=== PATIENT | female | born 1950 | race Caucasian/White ===

== ENCOUNTER 2017-09-13 11:24 | Outpatient (CLI) | payer MEDICARE, BC ==
--- NOTE | 2017-09-24 18:01 | Mammography Report ---
BILATERAL DIGITAL MAMMOGRAPHY: 09/13/2017 COMPARISON: 09/07/2016, 08/16/2015, 08/06/2014, and 05/05/2013. TECHNIQUE: Bilateral digital CC and MLO projections. FINDINGS: The breast tissue is heterogeneously dense. There is no dominant mass, suspicious microcalcifications or skin thickening. On the left, no architectural distortion is seen. On the right, there is asymmetric density in the upper outer breast and a possible developing density in the posterior 6 o'clock position for which spot compression and true lateral views are suggested. Depending on these, ultrasound may be needed. IMPRESSION: 1. NEGATIVE LEFT BREAST. BIRADS CATEGORY: 1, NEGATIVE. 2. NEEDS ADDITIONAL EVALUATION RIGHT BREAST. BIRADS CATEGORY: 0, INCOMPLETE. STANDARD QUALIFYING STATEMENTS 1. This examination was reviewed with the aid of Computed-Aided Detection (CAD) . 2. A negative or benign imaging report should not delay biopsy if clinically suspicious findings are present. Consider surgical consultation if warranted. More than 5 % of cancers are not identified by imaging. 3. Dense breasts may obscure an underlying neoplasm. TD: 09/24/2017 16:07 ZANDRA
== END 2017-09-13 11:25 | disposition home or self-care (01) ==
LOC: DI 11:24
PROVIDERS: ATTEND Family Medicine
DX: Z12.31 Encounter for screening mammogram for malignant neoplasm of breast (principal); R92.2 Inconclusive mammogram
CPT/HCPCS: 77067

== ENCOUNTER 2017-10-29 14:08 | Outpatient (CLI) | payer MEDICARE, BC ==
--- NOTE | 2017-10-29 15:16 | Mammography Report ---
Procedure Date: 10/29/2017 Accession Number: [id number] / [id number] Procedure: BRENNA - Diag Special Views Dig RT CPT Code: FULL RESULT: EXAM: Diag Special Views Dig RT DATE: 10/29/2017 2:40 PM CLINICAL HISTORY: Asymmetries upper outer and inferior right breast TECHNIQUE: Right true lateral and spot compression views COMPARISON: 09/13/2017, 09/07/2016, 08/16/2015, 08/06/2014, 05/05/2013 FINDINGS: The breasts demonstrate heterogeneously dense fibroglandular parenchyma bilaterally. The questioned asymmetries do not persist on additional compression. No underlying mass lesion or architectural distortion is seen. IMPRESSION: Negative examination RECOMMENDATION: Recommend routine annual Screening mammography unless otherwise clinically indicated. BIRADS CATEGORY 1: Negative STANDARD QUALIFYING STATEMENTS: 1. This examination was reviewed with the aid of Computer-Aided Detection (CAD). 2. A negative or benign imaging report should not delay biopsy if clinically suspicious findings are present. Consider surgical consultation if warrented. More than 5% of cancers are not identified by imaging. 3. Dense breasts may obscure an underlying neoplasm.
== END 2017-10-29 14:09 | disposition home or self-care (01) ==
LOC: DI 14:08
PROVIDERS: ATTEND Family Medicine
DX: R92.8 Other abnormal and inconclusive findings on diagnostic imaging of breast (principal)

== ENCOUNTER 2018-10-30 10:08 | Outpatient (CLI) | payer MEDICARE, BC ==
--- NOTE | 2018-11-04 15:39 | Mammography Report ---
Reason: ENCOUNTER FOR SCREENING MAMMOGRAM FOR MALIGNANT NE Procedure Date: 10/30/2018 Accession Number: [id number] / [id number] Procedure: BRENNA - Screening Mammo w/[place] CPT Code: FULL RESULT: EXAM: Screening Mammo w/[place] DATE: 10/30/2018 10:52 AM CLINICAL HISTORY: Screening examination. History of nulliparity. TECHNIQUE: (B) - Bilateral CC and MLO views were obtained. COMPARISON: 10/29/2017 through 05/05/2013. PARENCHYMAL PATTERN: (D) - The breast(s) demonstrate(s) heterogeneously dense fibroglandular parenchyma. FINDINGS: There is a coarse left breast calcification, typically benign. There are no suspicious masses, calcifications, or areas of distortion. IMPRESSION: Benign findings. BI-RADS category 2. RECOMMENDATION: (ANNUAL) - Recommend routine annual screening mammography. BI-RADS CATEGORY: (2) - Benign Findings. STANDARD QUALIFYING STATEMENTS: 1. This examination was not reviewed with the aid of Computer-Aided Detection (CAD). 2. A negative or benign imaging report should not preclude biopsy if clinically suspicious findings are present. 3. Dense breasts may obscure an underlying neoplasm. 4. This examination was reviewed with the aid of 3D breast imaging (tomosynthesis).
== END 2018-10-30 10:09 | disposition home or self-care (01) ==
LOC: DI 10:08
PROVIDERS: ATTEND Family Medicine
DX: Z12.31 Encounter for screening mammogram for malignant neoplasm of breast (principal)
CPT/HCPCS: 77063; 77067

== ENCOUNTER 2018-12-17 09:11 | Day surgery (SDC) | payer MEDICARE, BC ==
[2018-12-17] MEDS ORDERED: MIDAZOLAM 2 MG/2 ML VIAL IVP ONE (09:12)
[2018-12-17] MEDS ORDERED: fentaNYL 100 MCG/2 ML VIAL IVP ONE (09:12)
[2018-12-17] MEDS ORDERED: LACTATED RINGERS 1,000 ML IV ONE (10:18)
[2018-12-17 11:16] VITALS: BP 92/50
== END 2018-12-17 09:12 | disposition home or self-care (01) ==
LOC: SDS 09:11
PROVIDERS: ATTEND Internal Medicine Gastroenterology
PROC: 0DJD8ZZ Inspection of Lower Intestinal Tract, Via Natural or Artificial Opening Endoscopic (ICD-10-PCS; principal; 2018-12-17 10:45)
DX: Z12.11 Encounter for screening for malignant neoplasm of colon (principal); K21.9 Gastro-esophageal reflux disease without esophagitis; Z86.010 Personal history of colon polyps; Z80.0 Family history of malignant neoplasm of digestive organs
CPT/HCPCS: G0105; J7120